=== PATIENT | male | born 1995 ===

== ENCOUNTER 2016-11-10 03:34 | Emergency (ER) | payer OTHER ==
[~2016-11-10] VITALS: Ht 180 cm; Wt 103.0 kg
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
[2016-11-10] MEDS ORDERED: THYROID (04:01)
[2016-11-10] MEDS ORDERED: IBUPROFEN600 M1 PO (04:10)
[2016-11-10] MEDS ORDERED: CYCLOBENZAPRINE10 M1 PO (04:10)
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
[2016-11-10 04:46] VITALS: BP 138/88
== END 2016-11-10 04:46 ==
LOC: ERH 03:34
DX: S16.1XXA Strain of muscle, fascia and tendon at neck level, initial encounter (principal); M54.9 Dorsalgia, unspecified; R07.9 Chest pain, unspecified; V47.5XXA Car driver injured in collision with fixed or stationary object in traffic accident, initial encounter; Y92.411 Interstate highway as the place of occurrence of the external cause